=== PATIENT | male | born 1955 | race Caucasian/White ===

== ENCOUNTER 2023-12-24 08:50 | Day surgery (SDC) | payer MEDICARE ==
[2023-12-22 15:23] VITALS: BMI 37.5
[2023-12-24] MEDS ORDERED: Bupivacaine PF 0.5% 30 ML VIAL ONE (11:02)
[2023-12-24] MEDS ORDERED: CEFAZOLIN 2 GM VIAL ONE (11:02)
[2023-12-24] MEDS ORDERED: Ondansetron PF 4 MG/2 ML Vial ONE (11:06)
[2023-12-24] MEDS ORDERED: Ketorolac Tromethamine 30 MG (1 mL) VIAL ONE (11:06)
[2023-12-24] MEDS ORDERED: Lidocaine 1% PF 5 ML VIAL ONE (11:06)
[2023-12-24] MEDS ORDERED: Dexamethasone 20 MG/5 ML VIAL ONE (11:06)
[2023-12-24] MEDS ORDERED: PROPOFOL 20 ML ONE (11:07)
[2023-12-24] MEDS ORDERED: fentaNYL 50 mcg/mL 1 mL Vial ONE (11:07)
[2023-12-24] MEDS ORDERED: Midazolam HCl 2 mg/2 ml Vial ONE (11:07)
[2023-12-24] MEDS ORDERED: Vasopressin 20 UNITS/ML VIAL ONE (11:53)
== END 2023-12-24 13:35 | disposition home or self-care (01) ==
LOC: CSHSDC 08:50
PROVIDERS: ATTEND Podiatrist Foot & Ankle Surgery
PROC: 0SGM0JZ Fusion of Right Metatarsal-Phalangeal Joint with Synthetic Substitute, Open Approach (ICD-10-PCS; principal; 2023-12-24)
DX: M20.21 Hallux rigidus, right foot (principal); I10 Essential (primary) hypertension; E78.00 Pure hypercholesterolemia, unspecified; M10.9 Gout, unspecified; M19.90 Unspecified osteoarthritis, unspecified site; Z98.890 Other specified postprocedural states; Z90.49 Acquired absence of other specified parts of digestive tract; Z79.899 Other long term (current) drug therapy; Z88.8 Allergy status to other drugs, medicaments and biological substances
CPT/HCPCS: 28750; 73620; 93005; C1713 ×7; J3010; 93010; J0665; J1100; J1885; J2250; J2405; J2704